=== PATIENT | female | born 1985 | race Caucasian/White ===

== ENCOUNTER 2018-03-13 10:07 | Emergency (ER) | payer BC ==
--- NOTE | 2018-03-13 11:03 | EDPHY ---
H & P Time Seen by Provider: 03/13/18 11:03 HPI/ROS: Chief complaint. Back pain, urinary tract infection HPI. Patient 32-year-old female presents with urinary frequency and dysuria. She has had this for 1 and half weeks. She was diagnosed with the UTI at urgent care 3 days ago and has been on Bactrim since. Now she has right flank pain and feels more achy. She continues to have urinary frequency and dysuria. No chest pain or shortness of breath. No fever. No vomiting. ROS 10 systems were reviewed and negative with the exception of the elements mentioned in the history of present illness Past Medical/Surgical History: Factor 5 Leiden deficiency Social History: Single, nonsmoker, no alcohol Smoking Status: Never smoked Physical Exam: General Appearance: Alert pleasant well-developed female mild distress vitals are stable Eyes: Pupils equal and round no pallor or injection. ENT, Mouth: Mucous membranes are moist. Respiratory: There are no retractions, lungs are clear to auscultation. Cardiovascular: Regular rate and rhythm. Gastrointestinal: Abdomen is soft with mild suprapubic tenderness. Right flank tenderness to percussion. Neurological: Awake and alert, sensory and motor exams grossly normal. Skin: Warm and dry, no rashes. Musculoskeletal: Neck is supple nontender. Extremities symmetrical, full range of motion. Psychiatric: Patient is oriented X 3, there is no agitation. Constitutional: Initial Vital Signs Temperature (C) 36.7 C 03/13/18 10:11 Heart Rate 85 03/13/18 10:11 Respiratory Rate 17 03/13/18 10:11 Blood Pressure 126/76 H 03/13/18 10:11 O2 Sat (%) 96 03/13/18 10:11 O2 Delivery Mode Room Air Allergies/Adverse Reactions: No Known Allergies Allergy (Verified 03/13/18 10:10) Home Medications: Medication Instructions Recorded Bactrim DS 03/13/18 Cephalexin [Keflex (*)] 500 mg PO TID #21 cap 03/13/18 Ondansetron Odt [Zofran Odt] 4 mg PO Q4PRN PRN #4 tab 03/13/18 Medical Decision Making Procedures: IV normal saline. IV Rocephin Urine sent for culture and sensitivity ED Course/Re-evaluation: Re-evaluation 12:10 p.m.. Patient is stable. She and I discussed treatment plan including criteria for return importance of follow-up and further evaluation. She expresses understanding and agreement Differential Diagnosis: Patient has had a UTI and been treated multiple days of Bactrim. She still has UTI. She now has flank pain. I think that she has pyelonephritis. I do not think the patient has sepsis - Data Points Laboratory Results: 03/13/18 10:15 Urine Color YELLOW Urine Appearance HAZY Urine pH 5.0 (5.0-7.5) Ur Specific [place] 1.023 (1.002-1.030) Urine Protein NEGATIVE (NEGATIVE) Urine Ketones NEGATIVE (NEGATIVE) Urine Blood NEGATIVE (NEGATIVE) Urine Nitrate NEGATIVE (NEGATIVE) Urine Bilirubin NEGATIVE (NEGATIVE) Urine Urobilinogen NEGATIVE EU EU (0.2-1.0) Ur Leukocyte Esterase 2+ H (NEGATIVE) Urine RBC 3-5 /hpf H /hpf (0-3) Urine WBC 5-10 /hpf H /hpf (0-3) Ur Epithelial Cells TRACE /lpf /lpf (NONE-1+) Urine Mucus 1+ /lpf /lpf (NONE-1+) Urine Glucose NEGATIVE (NEGATIVE) Medications Given: Discontinued Medications Ceftriaxone Sodium/Dextrose (Rocephin 1 Gm (Premix)) 50 mls @ 100 mls/hr IV EDNOW ONE PRN Reason: Protocol Stop: 03/13/18 11:50 Last Admin: 03/13/18 11:45 Dose: 50 mls Sodium Chloride (Ns) 1,000 mls @ 0 mls/hr IV ONCE ONE; Wide Open PRN Reason: Protocol Stop: 03/13/18 11:22 Last Admin: 03/13/18 11:44 Dose: 1,000 mls Ondansetron HCl (Zofran) 4 mg IVP EDNOW ONE Stop: 03/13/18 11:23 Last Admin: 03/13/18 11:45 Dose: 4 mg Departure - Departure Disposition: Home, Routine, Self-Care Clinical Impression: Acute pyelonephritis Condition: Good Instructions: Kidney Infection (ED) Additional Instructions: Drink plenty of fluids and stay hydrated Zofran if nauseated. Cephalexin as antibiotic for kidney infection Return for worsening symptoms Recheck in 2 days if not improved Referrals: NONE *PRIMARY CARE P,. [Primary Care Provider] - As per Instructions Seema Benavidez MD [[facility] Primary Care Provider] - 2-3 days, if not improved Prescriptions: Cephalexin [Keflex (*)] 500 mg PO TID #21 cap Ondansetron Odt [Zofran Odt] 4 mg PO Q4PRN PRN #4 tab PRN Reason: Nausea/Vomiting, Use 1st
[2018-03-13] MEDS ORDERED: NS 1,000 ML IV ONE (11:21)
[2018-03-13] MEDS ORDERED: ONDANSETRON 4 MG/2 ML VIAL IVP ONE (11:22)
[2018-03-13 12:33] VITALS: BP 121/70
== END 2018-03-13 12:33 | disposition home or self-care (01) ==
DX: N10 Acute pyelonephritis (principal); E86.9 Volume depletion, unspecified
CPT/HCPCS: 96365; J0696; J2405